=== PATIENT | female | born 1950 | race American Indian/Alaskan Native ===

== ENCOUNTER 2019-01-20 23:05 | Emergency (ER) | payer MEDICARE, BC ==
[~2019-01-20] VITALS: Ht 152.4 cm; Wt 62.6 kg
[~2019-01-20 23:05] MED LIST: ASCO500 PO; CEPH500 PO; CHOL10002 PO; DOCU100 PO; DOCUSATE PO; HYDR1TAB94 PO; LAMO100 PO; LAMOTRIGINE300 MG PO; LEVE500 PO; SERT100 PO; TRAZ100 PO; Trazodone HCl300 MG PO; [UNRECOGNIZED DRUG - OTHER] PO
[2019-01-21 00:17] LABS: BASOPHILS ABSOLUTE AUTO 0.02 K/mm3 (0.00-0.23); BASOPHILS PERCENT AUTO 0 % (0-2); EOSINOPHILS ABSOLUTE AUTO 0.04 K/mm3 (0.00-0.68); EOSINOPHILS PERCENT AUTO 1 % (0-6); Hematocrit 34.8 % (33.0-51.0); Hemoglobin 11.8 g/dL (11.5-16.0); IMMATURE GRAN ABSOLUTE AUTO 0.01 K/mm3 (0.00-0.10); IMMATURE GRAN PERCENT AUTO 0 % (0-1); LYMPHOCYTES ABSOLUTE AUTO 1.35 K/mm3 (0.84-5.20); LYMPHOCYTES PERCENT AUTO 29 % (21-46); MONOCYTES PERCENT AUTO 9 % (4-13); Mean Corpuscular HGB 34.4 pg (26.0-34.0); Mean Corpuscular HGB Conc 33.9 g/dL (31.5-36.5); Mean Corpuscular Volume 102 fL (80-100); Mean Platelet Volume 8.5 fL (9.1-12.4); NEUTROPHILS ABSOLUTE AUTO 2.82 K/mm3 (1.96-9.15); NEUTROPHILS PERCENT AUTO 61 % (41-73); Platelet Count 222 K/mm3 (150-400); RDW Standard Deviation 45.1 fL (35.1-46.3); Red Blood Cell Count 3.43 M/mm3 (3.80-5.20); White Blood Cell Count 4.64 K/mm3 (4.00-11.30)
[2019-01-21 00:39] LABS: Alanine Aminotransfer (ALT/SGP 18 U/L (12-78); Albumin/Globulin Ratio 1.1 (0.8-1.8); Alk Phos 61 U/L (50-136); Anion Gap 6 mmol/L (6-16); Aspartate Aminotrans (AST/SGOT 17 U/L (12-37); Bilirubin, Total 0.2 mg/dL (0.1-1.0); Blood Urea Nitrogen 13 mg/dL (8-24); Bun/Creatinine Ratio 16.7 (12.0-20.0); CO2, Blood 30 mmol/L (21-32); Calcium, Blood 9.4 mg/dL (8.5-10.1); Chloride, Blood 100 mmol/L (98-108); Creatinine, Blood 0.78 mg/dL (0.40-1.00); Globulin, Blood 3.6 g/dL (2.2-4.0); Glomerular Filtration Rate >60 (60-); Glucose, Blood 84 mg/dL (70-99); Potassium, Blood 3.7 mmol/L (3.5-5.5); Sodium, Blood 136 mmol/L (136-145); Total Protein, Blood 7.6 g/dL (6.4-8.2); Troponin I <0.015 ng/mL (0.000-0.040)
== END 2019-01-21 01:18 | disposition home or self-care (01) ==
LOC: ER 23:05
PROVIDERS: Emergency Medicine
DX: R07.89 Other chest pain (principal); Z88.0 Allergy status to penicillin; Z88.8 Allergy status to other drugs, medicaments and biological substances; Z88.2 Allergy status to sulfonamides; Z88.1 Allergy status to other antibiotic agents; Z79.899 Other long term (current) drug therapy; G40.909 Epilepsy, unspecified, not intractable, without status epilepticus; F32.9 Major depressive disorder, single episode, unspecified
CPT/HCPCS: 36415; 71046; 80053; 83690; 83880; 84484; 85025; 93005; 93010; 96374; 99284-25; J1885

== ENCOUNTER → 2022-07-10 | Outpatient (CLI) | payer MEDICARE, BC ==
[2022-07-12 12:09] LABS: HPV 16 Negative (Negative); HPV 18 Negative (Negative); HPV OTHER HR TYPES Negative (Negative)
== END | disposition home or self-care (01) ==
LOC: LAB SHORT 15:28 → LAB 15:28
PROVIDERS: Advanced Practice Midwife
DX: Z01.419 Encounter for gynecological examination (general) (routine) without abnormal findings (principal)
CPT/HCPCS: 87624; G0123

== ENCOUNTER 2022-12-04 07:09 | Day surgery (SDC) | payer MEDICARE, BC ==
[~2022-12-04] VITALS: Ht 152.4 cm; Wt 71.7 kg
--- NOTE | 2022-12-04 07:52 | NUR ---
GENERAL ANAETHESIA CAUSES N/V
--- NOTE | 2022-12-04 08:05 | NUR ---
12/04/22 0805 Rox Aldrich AT 0749 PLEDGET AT 0750
== END 2022-12-04 10:05 | disposition home or self-care (01) ==
LOC: ORSCSDS 07:09
PROVIDERS: Ophthalmology
PROC: 08DK3ZZ Extraction of Left Lens, Percutaneous Approach (ICD-10-PCS; principal; 2022-12-04 08:30)
DX: H25.12 Age-related nuclear cataract, left eye (principal); Z96.1 Presence of intraocular lens; R56.9 Unspecified convulsions; Z79.899 Other long term (current) drug therapy
CPT/HCPCS: J2001; J2250; J3010; J3301; J7040; V2632

== ENCOUNTER 2024-09-18 17:42 | Observation (INO) | payer MEDICARE, BC ==
[~2024-09-18] VITALS: Ht 152.4 cm; Wt 525.7 kg
[2024-09-18 18:34] LABS: BASOPHILS ABSOLUTE AUTO 0.01 K/mm3 (0.00-0.23); BASOPHILS PERCENT AUTO 0 % (0-2); EOSINOPHILS PERCENT AUTO 0 % (0-6); Hematocrit 37.6 % (33.0-51.0); Hemoglobin 13.2 g/dL (11.5-16.0); IMMATURE GRAN ABSOLUTE AUTO 0.02 K/mm3 (0.00-0.10); IMMATURE GRAN PERCENT AUTO 0 % (0-1); LYMPHOCYTES ABSOLUTE AUTO 1.16 K/mm3 (0.84-5.20); LYMPHOCYTES PERCENT AUTO 23 % (21-46); MONOCYTES ABSOLUTE AUTO 0.55 K/mm3 (0.16-1.47); MONOCYTES PERCENT AUTO 11 % (4-13); Mean Corpuscular HGB 33.4 pg (26.0-34.0); Mean Corpuscular HGB Conc 35.1 g/dL (31.5-36.5); Mean Corpuscular Volume 95 fL (80-100); NEUTROPHILS ABSOLUTE AUTO 3.28 K/mm3 (1.96-9.15); NEUTROPHILS PERCENT AUTO 65 % (41-73); Platelet Count 206 K/mm3 (150-400); RDW Coefficient Variation 12.1 % (11.7-14.2); RDW Standard Deviation 42.5 fL (35.1-46.3); Red Blood Cell Count 3.95 M/mm3 (3.80-5.20); White Blood Cell Count 5.02 K/mm3 (4.00-11.30)
[2024-09-18] MEDS ORDERED: Lactated Ringer's 1,000 ML IV ONE (18:35)
[2024-09-18 18:50] LABS: Free Thyroxine 1.42 ng/dL (0.70-1.60)
[2024-09-18 18:53] LABS: Thyroid Stimulating Hormone 1.93 uIU/mL (0.360-4.800)
[2024-09-18 19:31] LABS: Albumin, Blood 3.1 g/dL (3.4-5.0); Albumin/Globulin Ratio 0.9 (0.8-1.8); Bilirubin, Total 0.3 mg/dL (0.1-1.0); Bun/Creatinine Ratio 12.8 (12.0-20.0); Calcium, Blood 8.3 mg/dL (8.5-10.1); Creatinine, Blood 0.78 mg/dL (0.40-1.00); Globulin, Blood 3.5 g/dL (2.2-4.0); Total Protein, Blood 6.6 g/dL (6.4-8.2)
[2024-09-18 20:01] LABS: Influenza B, PCR NEGATIVE (NEGATIVE); Resp Syncytial Virus, PCR NEGATIVE (NEGATIVE); SARS-Cov-2 (COVID-19) PCR, MMC NEGATIVE (NEGATIVE)
[2024-09-18 20:11] LABS: Influenza A, PCR POSITIVE (NEGATIVE)
[2024-09-18] MEDS ORDERED: Diltiazem HCl 5 MG / ML 5ML Vial IV ONE (20:20)
[2024-09-18] MEDS ORDERED: Acetaminophen 500 MG Tab PO ONE (21:30)
[2024-09-19] MEDS ORDERED: Metoprolol Tartrate 1 MG/ML 5 ML VIAL IV ONE (00:25)
[2024-09-19] MEDS ORDERED: Ondansetron HCl 2 MG / ML 2ML Vial IV PRN (01:25)
[2024-09-19] MEDS ORDERED: NS 1,000 ML IV ONE (01:25)
[2024-09-19] MEDS ORDERED: FLU VACC TS2024-25(6MOS UP)/PF 45 MCG/0.5 ML SYRINGE IM ONE (01:25)
[2024-09-19] MEDS ORDERED: Oseltamivir Phosphate 75 MG Cap PO SCH (02:00)
[2024-09-19] MEDS ORDERED: TraZODone HCl 50 MG Tab PO ONE (03:45)
[2024-09-19] MEDS ORDERED: LevETIRAcetam 500 MG Tab PO ONE (03:45)
[2024-09-19 04:04] LABS: BASOPHILS ABSOLUTE AUTO 0.01 K/mm3 (0.00-0.23); BASOPHILS PERCENT AUTO 0 % (0-2); EOSINOPHILS ABSOLUTE AUTO 0.01 K/mm3 (0.00-0.68); EOSINOPHILS PERCENT AUTO 0 % (0-6); Hematocrit 35.1 % (33.0-51.0); Hemoglobin 12.4 g/dL (11.5-16.0); IMMATURE GRAN ABSOLUTE AUTO 0.01 K/mm3 (0.00-0.10); IMMATURE GRAN PERCENT AUTO 0 % (0-1); LYMPHOCYTES ABSOLUTE AUTO 2.02 K/mm3 (0.84-5.20); LYMPHOCYTES PERCENT AUTO 55 % (21-46); MONOCYTES ABSOLUTE AUTO 0.55 K/mm3 (0.16-1.47); MONOCYTES PERCENT AUTO 15 % (4-13); Mean Corpuscular HGB 33.6 pg (26.0-34.0); Mean Corpuscular HGB Conc 35.3 g/dL (31.5-36.5); Mean Corpuscular Volume 95 fL (80-100); Mean Platelet Volume 8.9 fL (9.1-12.4); NEUTROPHILS ABSOLUTE AUTO 1.06 K/mm3 (1.96-9.15); NEUTROPHILS PERCENT AUTO 29 % (41-73); Platelet Count 200 K/mm3 (150-400); RDW Coefficient Variation 12.2 % (11.7-14.2); RDW Standard Deviation 42.8 fL (35.1-46.3); Red Blood Cell Count 3.69 M/mm3 (3.80-5.20); White Blood Cell Count 3.66 K/mm3 (4.00-11.30)
[2024-09-19 04:31] LABS: Albumin, Blood 2.9 g/dL (3.4-5.0); Albumin/Globulin Ratio 0.8 (0.8-1.8); Bilirubin, Total 0.2 mg/dL (0.1-1.0); Bun/Creatinine Ratio 12.8 (12.0-20.0); Calcium, Blood 8.5 mg/dL (8.5-10.1); Creatinine, Blood 0.78 mg/dL (0.40-1.00); Globulin, Blood 3.6 g/dL (2.2-4.0); Potassium, Blood 3.8 mmol/L (3.5-5.5); Total Protein, Blood 6.5 g/dL (6.4-8.2)
[2024-09-19] MEDS ORDERED: LamoTRIgine 100 MG Tab PO SCH (09:00)
[2024-09-19] MEDS ORDERED: Enoxaparin 40 MG/0.4 ML SYR SC SCH (09:00)
[2024-09-19] MEDS ORDERED: Sertraline HCl 100 MG Tab PO SCH (09:00)
[2024-09-19] MEDS ORDERED: LevETIRAcetam 500 MG Tab PO SCH (09:00)
[2024-09-19] MEDS ORDERED: Cholecalciferol 1000 Unit Tablet (=25MCG) PO SCH (09:00)
[2024-09-19] MEDS ORDERED: Metoprolol Succinate 25 MG TABCR PO SCH (10:00)
[2024-09-19 11:39] VITALS: BP 132/72
[2024-09-19] MEDS ORDERED: METO25ER (14:06)
[2024-09-19] MEDS ORDERED: METO25ER PO (14:07)
[2024-09-19] MEDS ORDERED: OSEL75CA PO (14:08)
[2024-09-19] MEDS ORDERED: ASPI81CH PO (14:08)
[2024-09-19] MEDS ORDERED: Oseltamivir Phosphate 75 MG Cap PO ONE (14:40)
--- NOTE | 2024-09-19 17:35 | NUR ---
1125 RECEIVED PT TO RM 306 VIA DUSTY FROM ER. PT ABLE TO TX SELF TO BED. A&O, PLEASANT AND CO-OP. ADMITTED FOR A-FIB WITH RVR; NEW DX AND INFLUENZA A. PT PLACED IN DROPLET ISO. TO ER WITH C/O SOB, COUGH, WEAKNESS AND SORE THROAT. PER REPORT, PT WAS ON CARDIZEM DRIP D/T HR 160-170'S, STABLIZING. PT ABLE TO D/C TO HOME. DR PRINGLE HERE TO DISCUSS PLAN OF CARE AND NEW MEDICATIONS. MEDS FAXED TO [facility] AND TO [facility] PER PT REQUEST. PT'S NEPHEW HERE TO TAKE PT HOME. PT ASSISTED OUT VIA W/C BY MEDICAL SERVICES MANAGER WITH ALL BELONGINGS.
[2024-09-19] MEDS ORDERED: TraZODone HCl 100 MG Tab PO SCH (21:00)
[2024-09-20] MEDS ORDERED: Ascorbic Acid 500 MG Tab PO SCH (09:00)
== END 2024-09-19 17:05 | disposition home or self-care (01) ==
LOC: ER 17:42 → ERHOLD 17:43 → ER 17:43 → ERHOLD 17:43 → MEDS 17:43
PROVIDERS: Student in an Organized Health Care Education/Training Program; ADMIT Internal Medicine
DX: I48.91 Unspecified atrial fibrillation (principal); J10.1 Influenza due to other identified influenza virus with other respiratory manifestations; E87.1 Hypo-osmolality and hyponatremia; G40.909 Epilepsy, unspecified, not intractable, without status epilepticus; Z79.899 Other long term (current) drug therapy; Z88.0 Allergy status to penicillin; Z88.2 Allergy status to sulfonamides; Z88.8 Allergy status to other drugs, medicaments and biological substances
CPT/HCPCS: 0241U; 71045; 80053; 83735; 83880; 84439; 84443; 84484; 85025; 93005; 93010; 93306; 96361; 96365-59; 96366; 96375-59; 96376; 99285-25; A9270; G0378; J1650; J7030; J7120

== ENCOUNTER 2024-10-13 09:50 | Day surgery (SDC) | payer MEDICARE, BC ==
[~2024-10-13 09:50] MED LIST changes: +ASPI81CH PO; +METO25ER; +METO25ER PO; +OSEL75CA PO
== END 2024-10-13 23:59 | disposition home or self-care (01) ==
LOC: MOI MAM 09:50
DX: D05.02 Lobular carcinoma in situ of left breast (principal)
CPT/HCPCS: 19081; 88305; 88341; 88342; 88360

== ENCOUNTER 2024-11-24 09:04 | Day surgery (SDC) | payer MEDICARE, BC ==
[2024-11-24] VITALS (13 sets, daily range): BP systolic 103–133; BP diastolic 60–72
[~2024-11-24] VITALS: Ht 152.4 cm; Wt 75.0 kg
[~2024-11-24 09:04] MED LIST changes: +CALTRATE 600 P1 EACH PO; -CHOL10002 PO; +ERGO50000 PO; +Glycopyrrolate 0.2 MG/ML 5ML VIAL ONE; +Ketorolac Tromethamine 30mg Vial ONE; +Lamictal100 MG PO; +SENNA DOCUSATE PO; +VITAMIN D32000 UNI1 PO
[2024-11-24] MEDS ORDERED: Lactated Ringer's 1,000 ML IV SCH (09:15)
[2024-11-24] MEDS ORDERED: CeFAZolin Sodium 2,000 MG in NS 100 ML IV SCH (09:15)
[2024-11-24] MEDS ORDERED: CeFAZolin Sodium 2,000 MG VIAL ONE (09:24)
--- NOTE | 2024-11-24 10:15 | NUR ---
Ambulatory in Day Surgery History, Chart, Medications and Allergies reviewed before start of procedure. Pre-Op teaching done. Pt verbalizes understanding. Patient States Post-Procedure ride home has been arranged.
[2024-11-24] MEDS ORDERED: Bupivacaine 0.5% HCl 5 MG/ML 30MLVIAL ONE (10:18)
[2024-11-24] MEDS ORDERED: Midazolam HCl 1MG / ML 2ML Vial ONE (10:25)
[2024-11-24] MEDS ORDERED: propofoL 20 ML IV ONE ×2 (10:25→12:08)
[2024-11-24] MEDS ORDERED: FentaNYL Citrate 50 MCG/ML 2 ML Injection ONE (10:25)
[2024-11-24] MEDS ORDERED: Dexamethasone Sod Phos 10 MG/ML 1ML VIAL ONE (10:28)
[2024-11-24] MEDS ORDERED: Ondansetron HCl 2 MG / ML 2ML Vial ONE (10:28)
[2024-11-24] MEDS ORDERED: propofoL 40 ML IV ONE (10:51)
[2024-11-24] MEDS ORDERED: Phenylephrine HCl 100 MCG/ML-NS 10MLSYR (1MG/10ML) ONE (11:02)
[2024-11-24] MEDS ORDERED: ePHEDrine Sulfate 50 MG/ML 1ML Injection ONE (11:13)
[2024-11-24] MEDS ORDERED: HYDROmorphone HCl/Pf 1MG SYR ONE (11:38)
[2024-11-24] MEDS ORDERED: HYDROcodone 5-APAP 325 TAB PO PRN (13:30)
[2024-11-24] MEDS ORDERED: Ketorolac Tromethamine 30mg Vial ONE (13:41)
--- NOTE | 2024-11-24 13:47 | NUR ---
PT HAS EAT AND TOLERATED FLUIDS. REPORTS FEELING HEAVINESS OR PRESSURE IN HER LEFT CHEST WHEN ASKED ABOUT HER PAIN. NO OTHER C/O AT THIS TIME. PT GIVEN TORADOL 15MG IV INSTEAD OF PO NARCOTIC. PT REPORTS NOT WANTING TO TAKE MUCH FOR NARCOTICS UNLESS NEEDED. INCISION TO LEFT BREAST WITH DERMABOND AND PAZ DRAIN SUTURED IN WITH OPSITE OVER THAT
[2024-11-24] MEDS ORDERED: Ketorolac Tromethamine 30mg Vial IV SCH (13:50)
--- NOTE | 2024-11-24 14:15 | NUR ---
PT RESTING, AND BIOX DROPS TO 85%, PT COUGHS AND DEEP BREATHINS AND O2 UP TO 95%. PT PLACED ON 2L NC WHILE SHE RESTS. HER FRIEND WAS CALLED AND A MESSAGE LEFT TO COME. WILL REVIEW DISCHARGE INSTRUCTIONS AND PAZ DRAIN INSTRUCTIONS WHEN SEE ARRIVES AT PATIENTS REQUEST.
--- NOTE | 2024-11-24 14:24 | NUR ---
REPORT TO NANCY MCNULTY. TO ASSUME CARE OF PATIENT.
--- NOTE | 2024-11-24 15:34 | NUR ---
DISCHARGE NOTE PT A&OX4, BREATHING RA, VSS, NO COMPLAINTS. TOLERATING PO INTAKE. SISTER IN LAW AND FRIEND AT BEDSIDE. Patient up to Ambulate independently. Gait steady. Discharge instructions reviewed with patient. Patient verbalizes understanding. Copy given to patient to take home. Dressing to procedure site clean, dry, intact with no visible drainage, swelling, erythema or bruising noted. DRAIN CARE INSTRUCTIONS GIVEN, PAZ DRAINED 45ML SEROUSANGUINOUS DRAINAGE IN DSU. Discharged via wheelchair to private car for ride home.
== END 2024-11-24 15:15 | disposition home or self-care (01) ==
LOC: ORSCMMR 09:04 → NM 09:04
PROVIDERS: Surgery
PROC: 07B60ZX Excision of Left Axillary Lymphatic, Open Approach, Diagnostic (ICD-10-PCS; principal; 2024-11-24 11:00)
PROC: 0HBU0ZZ Excision of Left Breast, Open Approach (ICD-10-PCS; principal; 2024-11-24 11:00)
DX: C50.512 Malignant neoplasm of lower-outer quadrant of left female breast (principal); C77.3 Secondary and unspecified malignant neoplasm of axilla and upper limb lymph nodes; Z17.0 Estrogen receptor positive status [ER+]; Z17.21 Progesterone receptor positive status; Z17.32 Human epidermal growth factor receptor 2 negative status; E66.9 Obesity, unspecified; Z68.32 Body mass index [BMI] 32.0-32.9, adult; I48.91 Unspecified atrial fibrillation; Z79.899 Other long term (current) drug therapy
CPT/HCPCS: 38792; 88307; 88342; A9520; J0690; J1100; J1171; J1885; J2250; J2371; J2405; J2704; J3010; J7120